=== PATIENT | female | born 1995 | race Caucasian/White ===

== ENCOUNTER 2017-02-14 10:11 | Emergency (ER) | payer MEDICAID ==
[2017-02-14] MEDS ORDERED: AMOXICILLIN/CLAVULANATE POT 875/125 MG TAB PO ONE (10:46)
--- NOTE | 2017-02-14 10:46 | EDPHY ---
H & P Smoking Status: Never smoked Time Seen by Provider: 02/14/17 10:26 HPI/ROS: CHIEF COMPLAINT: Dog bite face HISTORY OF PRESENT ILLNESS: 21-year-old immunocompetent female with up-to-date tetanus was petting her roommate's dog, who is up-to-date with vaccinations, when the dog turned and bit her on the face. She notes that the dog has a tendency in general to "not like her". Occurred shortly prior to arrival. Denies ocular involvement. PRIMARY CARE PROVIDER: REVIEW OF SYSTEMS: A ten point review of systems was performed and is negative with the exception of the items mentioned in the HPI PHYSICAL EXAM (Prior to examination, patient consented to physical exam, hands were washed and my usual and customary physical exam procedures followed) 1) GENERAL: Well-developed, well-nourished, alert and oriented. Appears to be in no acute distress. 2) HEAD: Normocephalic 3) HEENT: sclera anicteric 4) LUNGS: Breathing comfortably. 5) SKIN: puncture wound right upper lip not involving the vermilion border not through and through. Puncture wound left nasal ala. Not through and through. Left cheek linear flap measuring 3 cm. No involvement of the lids, does not cross lid margin. (Gi Franco) Constitutional: Initial Vital Signs Temperature (C) 37.0 C 02/14/17 10:13 Heart Rate 88 02/14/17 10:13 Respiratory Rate 18 02/14/17 10:13 Blood Pressure 130/78 H 02/14/17 10:13 O2 Sat (%) 100 02/14/17 10:13 O2 Delivery Mode Room Air Allergies/Adverse Reactions: No Known Allergies Allergy (Unverified 02/14/17 10:12) Home Medications: Medication Instructions Recorded Advair 100/50 (*) 02/14/17 Amoxicillin/Clavulanate Pot 875 mg PO BID #14 tab 02/14/17 [Augmentin 875 mg tab] Citalopram 02/14/17 Fluconazole [Diflucan (*)] 150 mg PO ONCE #0 tab 02/14/17 ED Images - Head Head Front/Back: 1 - Puncture wound 2 - Puncture wound 3 - Laceration MDM/Departure - MDM Procedures: Procedure: Laceration repair. I explained the indications, risks and benefits for both laceration repair and anesthetic administration. Verbal consent was obtained from the patient . The laceration on the face was anesthetized using 0.5% bupivicaine with epinephrine . After anesthetic administered the patient was observed for a period of time and had no apparent adverse effects. The wound was cleaned, prepped, draped in normal sterile fashion and explored to its base. No foreign body seen, no foreign bodies palpated. Laceration on the left cheek was repaired with 11 simple interrupted sutures, 6 0 Prolene and derma alberts. The laceration on the left nasal ala was closed with tissue adhesive. Laceration on the right upper lip, not through and through was closed with 1 simple interrupted 6 0 Prolene suture and Dermabond.. The wound repair was complex. The procedure was performed by myself. Patient has been informed that scarring will occur, although efforts have been made to minimize this. (Gi Franco) Medications Given: Discontinued Medications Amoxicillin/Clavulanate Potassium (Augmentin 875mg) 875 mg PO EDNOW ONE PRN Reason: Protocol Stop: 02/14/17 10:47 Last Admin: 02/14/17 10:52 Dose: 875 mg Fluconazole (Diflucan) 150 mg PO ONCE ONE Stop: 02/14/17 12:08 Last Admin: 02/14/17 12:24 Dose: 150 mg ED Course/Re-evaluation: Patient was re-evaluated with serial examinations. Discussed the case with secondary supervising physician Dr. Morelia Morales. Owing to the cosmetic location of the bite, namely the patient's face, recommended primary wound closure after extensive wound irrigation. She will be started on prophylactic antibiotics. Patient requests prescription for Diflucan noting that she typically would develop a vaginal yeast infection after antibiotics. This has been prescribed to her. (Gi Franco) The patient was evaluated and managed by the physician account management assistant. I have reviewed this chart and I agree with the findings and plan of care as documented , as indicated by my signature. I am the secondary supervising physician. ( Morelia Morales) - Depart Disposition: Home, Routine, Self-Care Clinical Impression: Dog bite of face Qualifiers: Encounter type: initial encounter Qualified Code(s): S01.85XA - Open bite of other part of head, initial encounter; W54.0XXA - Bitten by dog, initial encounter; W54.0XXA - Bitten by dog, initial encounter Condition: Good Instructions: Animal Bite (ED) Additional Instructions: Sleep with the head of the bed elevated approximately 30 degrees. Keep cold packs applied to the area for the next 2 days. Sutures need to be removed in 5 days, you may return to the ER in 5 days for suture removal. Take your antibiotics as directed. Stand Alone Forms: School Excuse, Work Excuse Prescriptions: Amoxicillin/Clavulanate Pot [Augmentin 875 mg tab] 875 mg PO BID #14 tab Fluconazole [Diflucan (*)] 150 mg PO ONCE #0 tab Referrals: Galdino Hernandez MD [Medical Doctor] - 02/17/17 (Sutures to be removed in [address] Galdino Hernandez is a plastic surgeon.)
[2017-02-14] MEDS ORDERED: SKIN ADHESIVE (DERMABOND) 1 EACH TP ONE (11:49)
[2017-02-14] MEDS ORDERED: FLUCONAZOLE 150 MG TAB PO ONE (12:07)
[2017-02-14 12:29] VITALS: RESP 16
[2017-02-19 07:55] VITALS: BP 107/67; PULSE 89; TEMP 98.1; O2SAT 100
== END 2017-02-14 12:27 | disposition home or self-care (01) ==
PROC: 0HQ1XZZ Repair Face Skin, External Approach (ICD-10-PCS; principal; 2017-02-14)
DX: S01.85XA Open bite of other part of head, initial encounter (principal); W54.0XXA Bitten by dog, initial encounter